=== PATIENT | male | born 1965 | race African-American/Black ===

== ENCOUNTER 2018-09-22 06:51 | Outpatient (CLI) | payer OTHER | END 2018-09-22 23:35 | disposition home or self-care (01) | LOC: LABW 06:51 | DX: R73.9 Hyperglycemia, unspecified (principal) | CPT/HCPCS: 36415; 82951; 82952; 83036 ==

== ENCOUNTER 2019-12-14 09:01 | Outpatient (CLI) | payer OTHER | END 2019-12-14 23:55 | disposition home or self-care (01) | LOC: CT 09:01 | DX: N50.819 Testicular pain, unspecified (principal); R10.32 Left lower quadrant pain | CPT/HCPCS: 36415; 82565; 84520; Q9963 ==

== ENCOUNTER 2020-10-27 07:40 | Outpatient (CLI) | payer OTHER | END 2020-10-27 22:07 | disposition home or self-care (01) | LOC: CT 07:40 | PROVIDERS: ATTEND Specialist | DX: N50.819 Testicular pain, unspecified (principal); N28.1 Cyst of kidney, acquired ==